=== PATIENT | male | born 1975 | race Caucasian/White ===

== ENCOUNTER → 2019-07-19 | Outpatient (CLI) | payer BC ==
--- NOTE | 2019-07-17 09:50 | NUR ---
lmom as to date and time to be here. asked to call back with med list, pmh and allergies
[~2019-07-19] VITALS: Ht 180.3 cm; Wt 166.3 kg
[~2019-07-19] MED LIST: ASPIRIN 81M81 MG/TA2 PO; CARDIZEM120 MG PO; DAZIDOX20 MG PO; FLEXERIL 1010 MG/TAB PO; LIPITOR 10MG10 MG PO; MASON NATURAL1200 MG PO; MULTAQ400 MG PO; MULTIPLE VITAMI1 CAP PO; OMEGA 31000 MG PO; SYNTHROID 0.0.025 MG PO; TOPROL XL 25MG25 MG PO; TOPROL XL 50MG50 MG PO; XARELTO20 MG PO; ZESTRIL 10MG10 MG PO
[2019-07-19 07:32] VITALS: BP 148/93; PULSE 80
[2019-07-19 08:30] VITALS: BP 156/93; PULSE 72
--- NOTE | 2019-07-19 08:45 | NUR ---
pt taken to [facility] in dwheelchair, mom drove home
== END ==
LOC: COL.RAD 07:00
DX: M54.17 Radiculopathy, lumbosacral region (principal); M54.42 Lumbago with sciatica, left side
CPT/HCPCS: J3301

== ENCOUNTER → 2019-09-27 | Outpatient (CLI) | payer BC ==
[~2019-09-27] VITALS: Ht 180.3 cm; Wt 168.0 kg
[2019-09-27 13:27] VITALS: BP 150/85; PULSE 77
[2019-09-27 14:10] VITALS: BP 144/84; PULSE 72
== END ==
LOC: COL.RAD 12:57
DX: M54.42 Lumbago with sciatica, left side (principal)
CPT/HCPCS: J3301

== ENCOUNTER 2021-07-05 14:29 | Day surgery (SDC) | payer BC ==
[~2021-07-05] VITALS: Ht 180.3 cm; Wt 169.6 kg
[2021-07-05 16:00] VITALS: BP 126/46; PULSE 95; TEMP 98.5
[2021-07-05] MEDS ORDERED: ZOFRAN 4MG T4 MG/TAB PO (16:36)
[2021-07-05] MEDS ORDERED: NORCO 325 MG-51 TAB PO ×2 (16:37→17:58)
[2021-07-05] MEDS ORDERED: COLACE 100100 MG/CAP PO (16:39)
[2021-07-05] MEDS ORDERED: PYRIDIUM 100MG100 MG PO (17:58)
[2021-07-05 18:55] VITALS: BP 129/66; PULSE 60; TEMP 98.9
[2021-07-05 19:30] VITALS: BP 146/64; PULSE 64
--- NOTE | 2021-07-05 19:50 | NUR ---
185 Report called to this RN from Lily, [employer]. 1854 Lily tranports pt from PACU to [facility] [place] [address] 8 via cart and O2 2L via nasal cannula. Monitors on and alarms set. Call light within reach. Pt's brought from waiting room to be with pt in room. Pt alert and oriented and denies any pain or nausea. Pt requests muffin and juice. 1904 Pt taking food and drink well. No complications voiced. 1914 Pt desires to use the restroom, and this RN assists the pt there without complication. 0 Discharge instructions given to pt and . All instructions explained to their satisfaction. Handed to them are a thank you card and discharge instructions. 1950 Pt transferred out of hospital via wheelchair and this RN to private vehicle driven by pt's .
[2021-07-05 21:53] VITALS: BP 110/87; PULSE 77; TEMP 98.2
== END 2021-07-05 19:50 | disposition home or self-care (01) ==
LOC: SDCO 14:29
DX: N13.2 Hydronephrosis with renal and ureteral calculous obstruction (principal); E03.9 Hypothyroidism, unspecified; E78.5 Hyperlipidemia, unspecified; I10 Essential (primary) hypertension; G47.33 Obstructive sleep apnea (adult) (pediatric); K21.9 Gastro-esophageal reflux disease without esophagitis; Z20.822 Contact with and (suspected) exposure to COVID-19; Z79.82 Long term (current) use of aspirin; Z79.890 Hormone replacement therapy; Z79.899 Other long term (current) drug therapy
CPT/HCPCS: C1769; C2617; J1100; J1885; J2405; J2704; J3010; J7120; Q9967